=== PATIENT | male | born 1975 | race Caucasian/White ===

== ENCOUNTER 2020-03-06 07:48 | Outpatient (REF) | payer BC, SELFPAY ==
[2020-03-06 10:05] LABS: MANUAL DIFF FLAG NO
[2020-03-06 10:12] LABS: Basophils Percent Auto 0.6 % (0-2); Eosinophils Absolute Auto 0.2 X10*3/uL (0.0-0.4); Eosinophils Percent Auto 3.4 % (0-4); Hemoglobin 14.8 g/dl (14.0-18.0); Imm Gran Abs Auto 0.02 X10*3/uL (0.00-0.03); Imm Gran Pct Auto 0.3 % (0.0-0.4); Lymphocytes Absolute Auto 2.2 X10*3/uL (1.2-4.9); Lymphocytes Percent Auto 30.5 % (20-40); Mean Corpuscular HGB Conc 34.4 g/dl (31.0-36.0); Mean Corpuscular Hemoglobin 31.4 pg (27.0-33.0); Mean Corpuscular Volume 91.3 fL (80-98); Mean Platelet Volume 9.7 fL (9.4-12.4); Monocytes Absolute Auto 0.7 X10*3/uL (0.1-1.2); Monocytes Percent Auto 10.3 % (2-11); Neutrophils Absolute Auto 3.9 X10*3/uL (2.0-8.3); Neutrophils Percent Auto 54.9 % (45-73); Platelet Count 316 X10*3/uL (160-400); Red Blood Count 4.71 X10*6/uL (4.60-5.80); Red Cell Distribution Width 11.6 % (11.0-16.0); White Blood Count 7.1 X10*3/uL (4.8-10.8)
[2020-03-06 10:51] LABS: Alanine Aminotransferase 38 U/L (0-40); Albumin Level 4.7 g/dL (3.5-5.0); Alkaline Phosphatase 44 U/L (39-117); Anion Gap 13 (12-20); Aspartate Amino Transferase 27 U/L (5-37); Bilirubin Total 0.5 mg/dL (0.0-1.0); Blood Urea Nitrogen 9 mg/dL (9-16); Calcium 8.8 mg/dL (8.4-10.2); Carbon Dioxide 30 mmol/L (22-29); Chloride 103 mmol/L (96-108); Estimated Glomerular Filt Rate > 60; Glucose Random 93 mg/dL (60-115); Potassium 3.9 mmol/l (3.3-5.1); Sodium 142 mmol/L (135-145); Total Protein 7.2 g/dL (6.5-8.0)
[2020-03-06 11:14] LABS: Thyroid Stimulating Hormone 1.35 uIU/mL (0.32-4.0)
== END 2020-03-06 07:49 | disposition home or self-care (01) ==
LOC: HO.10HDL 07:48
PROVIDERS: Visit Provider Family Medicine
DX: R19.7 Diarrhea, unspecified (principal); R63.4 Abnormal weight loss; R53.1 Weakness
CPT/HCPCS: 36415; 80053; 84443; 85025

== ENCOUNTER 2023-09-06 09:33 | Day surgery (SDC) | payer BC, SELFPAY ==
[2023-09-02 14:58] VITALS: BMI 26.3
--- NOTE | 2023-09-05 09:02 | P.CONAN_ITS ---
Documented by User: Blank Campos NP 09/05/23 09:02 HPI - Anesthesia Eval Consult details Narrative: 47yo M for Upper Endoscopy and Colonoscopy [facility] Past Medical History Medical History GERD (gastroesophageal reflux disease) Asthma Surgical History Surgical History Hx of hand surgery Social History Social History Household Members: Spouse Patient Tobacco Use Status: Never used Tobacco Use of substances other than those prescribed or required for medical reasons: Yes Substance Use Type Other:: daily Are you DNR?: No Advance Directives: No Advance Directives Information Provided: Yes Meds Allergies Allergy/AdvReac Type Severity Reaction Status Date / Time environmental allergies Allergy Unknown Unknown Verified 09/02/23 15:01 theophylline Allergy Unknown Unknown Verified 09/02/23 15:01 Home Medications ?Medication ?Instructions ?Recorded ?Confirmed ?Last Taken ?Type budesonide-formoterol HFA 160 2 puff inhalation BID 09/02/23 09/02/23 Unknown History mcg-4.5 mcg/actuation aerosol inhaler omeprazole 20 mg capsule,delayed 20 mg PO QPM 09/02/23 09/02/23 Unknown History release Exam Height,Weight and Vital Signs: Height 5 ft 9.5 in Weight 82.1 kg Assessment and Plan Assessment Anesthesia Assessment: Chart Reviewed Documented by User: Alejandro Cheema MD 09/06/23 14:23 [facility] Past Medical History Medical History GERD (gastroesophageal reflux disease) Asthma Family History Family history of problems with anesthesia: No Surgical History Surgical History Hx of hand surgery History of Problems with Anesthesia: No Social History Social History Household Members: Spouse Patient Tobacco Use Status: Never used Tobacco Use of substances other than those prescribed or required for medical reasons: Yes Substance Use Type Other:: daily Are you DNR?: No Advance Directives: No Advance Directives Information Provided: Yes Meds Allergies Allergy/AdvReac Type Severity Reaction Status Date / Time environmental allergies Allergy Unknown Unknown Verified 09/02/23 15:01 theophylline Allergy Unknown Unknown Verified 09/02/23 15:01 Home Medications ?Medication ?Instructions ?Recorded ?Confirmed ?Last Taken ?Type budesonide-formoterol HFA 160 2 puff inhalation BID 09/02/23 09/02/23 Unknown History mcg-4.5 mcg/actuation aerosol inhaler omeprazole 20 mg capsule,delayed 20 mg PO QPM 09/02/23 09/02/23 Unknown History release Exam Airway Mallampati Class: II TM Dist: >3cm Neck ROM: Full Loose/Missing/Broken Teeth: No Assessment and Plan Assessment Anesthesia Assessment: Anesthesia Plan Discussed Final Anesthetic Review Family History of Problems with Anesthesia: No History of Problems with Anesthesia: No NPO: Yes ASA Class: II Final Preanesthetic Review: No Changes in Pt Med Stat, Meds/Allgs Chart Reviewed, Consent Obtained/Reviewed and Anes Risks/Benef Reviewed Patient Risk: Low Procedure Risk: Low Anesthetic Plan Anesthetic Plan: MAC: Disposition: Standard PACU
--- OUTSIDE RECORDS SUMMARY | 2023-09-06 09:35 | XMS_ITS ---
Author Organization [facility] Address [address] [place] [address] Care Team Providers Care Insurance Analyst Name Role Phone Oneal Barnett MD Primary Care Provider Unavailab Rubén Noland Jr REASON FOR VISIT screening, gerd Encounters Encounter Location Date Provider Diagnosis [facility] [place] Outpatient [address] [place] [phone] 09/06/2023 Rubén Shankar Jr PLAN OF TREATMENT Next Appt Details Provider Name:Rubén moore Jr, 09/06/2023 11:30:00 AM, [address] [facility] , [place], [place], [phone],
--- OUTSIDE RECORDS SUMMARY | 2023-09-06 09:35 | XMS_ITS | Patient Health Record ---
Author Organization [facility] Address [address] [place] [address] Care Team Providers Care Internal Recruiter Name Role Phone Anibal NICOLE, Oneal Primary Care Provider Rubén Brooks Jr Unavailable ALLERGIES Allergen (clinical drug ingredient) Drug/Non Drug Allergy documented on EMR Reaction Allergy Type Onset Date Status Pollen Pollen Unknown Allergy Active Dust Mites Unknown Allergy Active Dog dander Dog Dander Unknown Allergy Active Cat dander Cat Dander Unknown Allergy Active REASON FOR REFERRAL No Information MEDICATIONS Medication SIG (Take, Route, Frequency, Duration) Notes Start Date End Date Status MiraLax (colon prep) 17 GM/SCOOP mixed with Gatorade or Crystal Light Orally begin at 5:00 p.m. the day before the procedure for 1 day 08/22/2023 Active Budesonide-Formoterol Fumarate 160-4.5 MCG/ACT Inhalation for 90 Active Omeprazole 20 MG Oral for 90 A ctive IMMUNIZATIONS Vaccine Route Administration Date Status Comme nts Influenza Unknown 08/22/2023 Refused SOCIAL HISTORY Tobacco Use: Social History Observation Description Date Details (start date - stop date) Never Smoker NA - NA Sex Assigned At : Social History Observation Description Sex Assigned At Unknown Tobacco Use/Smoking Question Answer Notes Patient is a nonsmoker Alcohol Screen Question Answer Notes Did you have a drink containing alcohol in the p ast year? No Points 0 Interpretation Negative PROBLEMS Problem Type ICD Code Onset Dates Problem Status W/U Status Risk SNOMED Code Notes Problem Gastroesophageal reflux disease, unspecified whether esophagitis present (K21.9) Active confirmed 538472450 Problem Colon cancer screening (Z12.11) Active confirmed [id number] VITAL SIGNS Temperature 97.7 degrees Fahrenheit 08/22/2023 Blood pressure diastolic 00 mm Hg 08/22/2023 Height 5 ft 9.5 in in 08/22/2023 Blood pressure systolic 000 mm Hg 08/22/2023 Weight 181 lbs 08/22/2023 BMI 26.34 kg/m2 08/22/2023 Encounters Encounter Location Date Provider Diagnosis [facility] [place] [address] [place] [phone] 09/06/2023 Rubén Shankar Jr [facility] [address] [place] [address] 08/22/2023 Rubén Shankar Jr Gastroesophageal reflux disease, unspecified whether esophagitis present K21.9 and Colon cancer screening Z12.11 ASSESSMENTS Encounter Date Diagnosis Assessment Notes Treatment Notes Treatment Clinical Notes 08/22/2023 Colon cancer screeni ng (ICD-10 - Z12.11) 08/22/2023 Gastroesophageal ref lux disease, unspecified whether esophagitis present (ICD-10 - K21.9) PLAN OF TREATMENT Future Test Test Name Order Date UPPER GI ENDOSCOPY 08/22/2023 COLONOSCOPY 08/22/2023 Next Appt Details Provider Name:Rubén moore Jr, 09/06/2023 11:30:00 AM, [address] [place] [address] , [place], [place], [phone], Insurance Providers Payer Name Payer Address Payer Phone Subscriber Number Group Number Insured Name Patient Relationship to Insured Coverage Start Date Coverage End Date [facility] [address] [place], [place] [id number] MIGUEL ÁNGEL MCKENZIE Self - patient is the insured MEDICAL (GENERAL) HISTORY Medical History History ICD Code Gastroesophageal reflux disease Asthma Surgical History Surgery Date(Month/Year) boxer fracture 2009
--- OUTSIDE RECORDS SUMMARY | 2023-09-06 09:35 | XMS_ITS ---
Author Organization [facility] Address [address] [place] [phone] Care Team Providers Care Web Master Name Role Phone Anibal NICOLE, Oneal Primary Care Provider Rubén Brooks Jr Unavailable ALLERGIES Allergen (clinical drug ingredient) Drug/Non Drug Allergy documented on EMR Reaction Allergy Type Onset Date Status Pollen Pollen Unknown Allergy Active Dust Mites Unknown Allergy Active Dog dander Dog Dander Unknown Allergy Active Cat dander Cat Dander Unknown Allergy Active REASON FOR VISIT Patient presents today for a COLON SCREENING /EGD? MEDICATIONS Medication SIG (Take, Route, Frequency, Duration) [...] unspecified whether esophagitis present (K21.9) Active confirmed [id number] Problem Colon cancer screening (Z12.11) Active confirmed 259708004 VITAL SIGNS BMI 26.34 kg/m2 08/22/2023 Blood pressure systolic 000 mm Hg 08/22/19 24 Blood pressure diastolic 00 mm Hg 024 Height 5 ft 9.5 in in 08/22/2023 Temperature 97.7 degrees Fahrenheit 08/22/19 24 Weight 181 lbs 08/22/2023 Encounters Encounter Location Date Provider Diagnosis [facility] [address] [place] [address] 08/22/2023 Rubén Shankar Jr Gastroesophageal reflux disease, unspecified whether esophagitis present K21.9 and Colon cancer screening Z12.11 ASSESSMENTS Encounter Date Diagnosis Assessment Notes Treatment Notes Treatment Clinical Notes 08/22/2023 Gastroesophageal ref lux disease, unspecified whether esophagitis present (ICD-10 - K21.9) 08/22/2023 Colon cancer screeni ng (ICD-10 - Z12.11) PLAN OF TREATMENT Medication Medication Name Sig Start Date Stop Date Notes MiraLax (colon prep) 17 GM/SCOOP mixed with Gatorade or Crystal Light Orally begin at 5:00 p.m. the day before the procedure for 1 day 08/22/2023 Future Test Test Name Order Date UPPER GI ENDOSCOPY 08/22/2023 COLONOSCOPY 08/22/2023 Next Appt Details Follow Up: 1 Year, Reason: Provider Name:Rubén moore Jr, 09/06/2023 11:30:00 AM, [address] [place] [address], [phone], Progress Notes * Examination Category Sub-Category Detail Notes General Examination GENERAL APPEARANCE: in no ac laura distress HEAD: normocephalic EYES: sclera non-icteric NECK/THYROID: no lymphadenopathy HEART: S1, S2 normal, no mu rmurs CHEST: normal shape and exp ansion LUNGS: clear to auscultatio n bilaterally ABDOMEN: soft, nontender, non distended, bowel sounds present, no organomegaly SKIN: anicteric EXTREMITIES: no clubbing, cyanosi s, or edema PSYCH: cognitive function i ntact ORAL CAVITY: mucosa moist
[2023-09-06 09:49] VITALS: BMI 25.0
[2023-09-06 10:10] VITALS: BP 153/90; PULSE 67; RESP 16; TEMP 36.5; O2SAT 97
[2023-09-06] MEDS: Lactated Ringers 1,000 ML 100 ML IVCONT (10:12)
--- NOTE | 2023-09-06 10:31 | MHC.SHP ---
Pre-Procedural Eval Section A - 24 Hr Update-Section A only Date of Service: 09/06/23 The patient is an INPATIENT: No Changes since office visit: No Cold of Flu in the past 2 weeks, No New Medical Problems, No Changes in Medication and No Patient answered all questions The patient has been examined within 24 hours of the surgical procedure. The History & Physical has been completed within 30 days and I have reviewed it.: Yes Section B - Complete if H&P > 30 days Chief Complaint: gerd,screening Allergies: Allergies Allergy/AdvReac Type Severity Reaction Status Date / Time environmental allergies Allergy Unknown Unknown Verified 09/02/23 15:01 theophylline Allergy Unknown Unknown Verified 09/02/23 15:01 Plan I have reviewed the history and physical and performed a pertinent physical examination on my patient. No changes have occurred unless specified. Time Spent With Patient Time: Total time managing care of this patient today ____ minutes.
[2023-09-06 12:05] VITALS: BP 127/74; PULSE 64; RESP 18; TEMP 36.4
[2023-09-06 12:20] VITALS: BP 120/74; PULSE 55; RESP 16
[2023-09-06 12:32] VITALS: BP 131/86; PULSE 69; RESP 18; TEMP 36.4; O2SAT 96
--- NOTE | 2023-09-06 12:54 | OP_ITS ---
DATE OF SERVICE: 09/06/2023 SURGEON: Rubén Shankar MD INDICATIONS: Gastroesophageal reflux disease and colon cancer screening. PREOPERATIVE DIAGNOSIS: POSTOPERATIVE DIAGNOSIS: PROCEDURE PERFORMED: Upper endoscopy with biopsy, colonoscopy to the terminal ileum. ESTIMATED BLOOD LOSS: COMPLICATIONS: ANESTHESIA: Monitored anesthesia care. ASSISTANTS: SPECIMENS: DESCRIPTION OF PROCEDURE: A history and physical was performed. The risks and benefits of the procedure were explained to the patient. Informed consent was obtained. The patient was placed in the left lateral decubitus position. The Olympus video gastroscope was introduced into the esophagus, stomach, and duodenum. Examination was performed. The scope was removed. He was repositioned for colonoscopy. Digital rectal exam was performed and was found to be normal. The Olympus pediatric video colonoscope was introduced into the rectum and advanced to the cecum. The cecum was identified by transillumination, palpation, and identification of ileocecal valve. Examination was performed. The scope was removed. He tolerated both procedures well and was returned to the recovery area in stable condition. FINDINGS: Upper endoscopy: 1. Esophagus: The esophagus was normal. There was no esophagitis. Biopsies were obtained from the EG junction. 2. Stomach: The stomach showed no evidence of masses, ulcers, or polyps. Antral biopsies were obtained to evaluate for H pylori. 3. Duodenum: The bulb and 2nd portion were normal. Colonoscopy: The terminal ileum was examined and appeared normal. The visualized colonic mucosa was normal. The quality of the prep was good. No polyps were identified. Retroflexed examination showed small internal hemorrhoids. IMPRESSION: Normal colonoscopy, gastroesophageal reflux disease. RECOMMENDATION: Follow up the biopsy results. Repeat screening colonoscopy in 10 years. MD CLARA Turner/ISAUROL / [id number] [facility]
== END 2023-09-06 13:18 | disposition home or self-care (01) ==
PROVIDERS: PCP Family Medicine; Visit Provider Internal Medicine Gastroenterology
PROC: (CPT 45378; principal; 2023-09-06 11:30)
DX: Z12.11 Encounter for screening for malignant neoplasm of colon (principal); Z80.0 Family history of malignant neoplasm of digestive organs; K64.8 Other hemorrhoids; K21.9 Gastro-esophageal reflux disease without esophagitis; J45.909 Unspecified asthma, uncomplicated; Z79.899 Other long term (current) drug therapy
CPT/HCPCS: 45378; 43239; 88305; 88313; 88342; J2704